=== PATIENT | female | born 1950 | race Caucasian/White ===

== ENCOUNTER → 2017-04-17 | Outpatient (CLI) | payer BC ==
[~2017-04-17] MED LIST: ARMO250T5 PO; ATOR10TA82 PO; ATV5 PO; BECL1AER5; CALC-354 PO; FSM70 PO; GLIM1TAB PO; IPRASOL4 INH; LEVO112T2 PO; LIOT5TAB9 PO; LOSA100T65 PO; MAGN400T6 PO; MISCCAP80 PO; MULT-506 PO; POTA10CA28 PO
--- NOTE | 2017-04-18 07:55 | MAMMOGRAPHY REPORT ---
BILATERAL DIGITAL SCREENING MAMMOGRAM WITH CAD: 04/17/2017 CLINICAL HISTORY: Routine screening. Patient has no complaints. TECHNIQUE: Bilateral CC, MLO and repeat right MLO views were obtained. Current study was also evalu ated with a Computer Aided Detection (CAD) system. COMPARISON: Comparison is made to exams dated: 04/15/2016 mammogram, 03/12/2015 mammogram, 03/10/2014 mammogram, 03/07/2013 mammogram, 03/06/2012 mammogram - [facility], and 10/31/2008. BREAST COMPOSITION: There are scattered areas of fibroglandular density in both breasts. FINDINGS: There are scattered and grouped microcalcifications bilaterally, stable compared to prior mammograms. No suspicious mass, architectural distortion or cluster of suspicious microcalcificatio ns is seen. IMPRESSION: ACR BI-RADS CATEGORY 1: NEGATIVE There is no mammographic evidence of malignancy. A 1 year screening mammogram is recommended. The p atient will receive written notification of the results. Approximately 10% of breast cancers are not detected with mammography. A negative mammographic repor t should not delay biopsy if a clinically suggestive mass is present. Libia Jacobo M.D. ay/:04/17/2017 16:56:17 Agricultural Sales Representative: Bar CARABALLO(R)(M), [facility] letter sent: Normal 1/2 BI-RADS Code: ACR BI-RADS Category 1: Negative
== END | disposition home or self-care (01) ==
LOC: C.MAMM 12:15
PROVIDERS: ATTEND Physician Assistant
DX: Z12.31 Encounter for screening mammogram for malignant neoplasm of breast (principal)

== ENCOUNTER → 2017-08-19 | Outpatient (CLI) | payer BC ==
[~2017-08-19] MED LIST changes: -ATOR10TA82 PO; +ATOR10TA88 PO
[2017-08-19 12:46] LABS: HEMATOCRIT 42.3 % (37-47); MEAN CORPUSCULAR HEMOGLOBIN 29.8 pg (25-34); MEAN CORPUSCULAR HGB CONC 32.4 g/dl (32-36); MEAN PLATELET VOLUME 11.7 fL (7.4-10.4); PLATELET COUNT 242 K/uL (130-400); WHITE BLOOD COUNT 7.39 K/uL (4.8-10.8)
[2017-08-19 13:05] LABS: ESTIMATED AVERAGE GLUCOSE 126 mg/dl; HA1C FLAG Normal (Normal)
[2017-08-19 13:12] LABS: ALT/SGPT 25 U/L (12-78); BLOOD UREA NITROGEN 16 mg/dl (7-18); BUN/CREATININE RATIO 14.6 (10-20); CARBON DIOXIDE 29 mmol/L (21-32); CHLORIDE 104 mmol/L (98-107); CHOLESTEROL 164 mg/dl (0-200); GLUCOSE 95 mg/dl (70-99); POTASSIUM 3.8 mmol/L (3.5-5.1); SODIUM 141 mmol/L (136-145)
[2017-08-19 13:22] LABS: ALB/GLOB RATIO 1.2 (0.9-2); ALKALINE PHOSPHATASE 52 U/L (45-117); AST/SGOT 15 U/L (15-37); CHOLESTEROL/HDL RATIO 2.4; HDL CHOLESTEROL 67 mg/dl; LDL CHOLESTEROL CALCULATED 76 mg/dl; THYROID STIMULATING HORMONE 0.533 uIu/ml (0.300-4.500); TRIGLYCERIDES 105 mg/dl (0-150); VERY LOW DENSITY LIPOPROT CALC 21 mg/dl
--- NOTE | 2017-08-31 12:43 | CODING QUERY MEDICAL NECESSITY ---
SUPPORTING DIAGNOSIS NEEDED Aguilar MARIA, A supporting diagnosis is required for the test/procedure performed on this patient in order for us to be reimbursed by the patient's insurance. Please provide a supporting diagnosis for the following test/procedure listed below next to the test name along with your signature. *If there is no additional diagnosis for this patient that would support the following test/procedure please document that below next to the test/procedure. Test(s)/Procedure(s) that require a supporting diagnosis: * ([id number]) VITAMIN D ASSAY DIAGNOSIS: DATE OF SERVICE: 08/19/17 Provider Signature: Date: Thank you Dung [facility] Information Management Once completed, please kindly fax back to [phone] For questions please call [phone]
== END | disposition home or self-care (01) ==
LOC: C.LAB 11:02
PROVIDERS: ATTEND Nurse Practitioner Family
DX: E03.2 Hypothyroidism due to medicaments and other exogenous substances (principal); I10 Essential (primary) hypertension; E11.65 Type 2 diabetes mellitus with hyperglycemia; M81.0 Age-related osteoporosis without current pathological fracture

== ENCOUNTER 2017-11-19 20:23 | Emergency (ER) | payer BC ==
[~2017-11-19] VITALS: Ht 172.7 cm; Wt 112.7 kg
[~2017-11-19 20:23] MED LIST changes: +ATOR10TA82 PO; -ATOR10TA88 PO
[2017-11-19 20:25] VITALS: TEMP 36.8; Ht 172.7 cm; Wt 112.7 kg
[2017-11-19] MEDS ORDERED: CHOL20007 PO (21:03)
[2017-11-19] MEDS ORDERED: LORA-741 PO (21:03)
[2017-11-19] MEDS ORDERED: ARMO150T4 PO (21:03)
[2017-11-19] MEDS ORDERED: LEVO75TA PO (21:03)
[2017-11-19] MEDS ORDERED: ALEN70TA4 PO (21:03)
[2017-11-19] MEDS ORDERED: ASPI81TA28 PO (21:03)
[2017-11-19] MEDS ORDERED: BECL1AER5 NAE (21:03)
[2017-11-19] MEDS ORDERED: MELA1TAB9 PO (21:03)
[2017-11-19 21:11] LABS: URINE BILIRUBIN NEG (NEG); URINE EPITHELIAL CELL AUTO 0-5 /lpf (0-5); URINE NITRITE NEG (NEG); URINE PH 8.5 (4.5-7.5); URINE SPECIFIC GRAVITY 1.015 (1.000-1.030); UROBILINOGEN NEG (NEG); ZZUR CULT IF INDIC CLEAN CATCH YES
[2017-11-19 21:19] LABS: SULFASALICYLIC ACID POS (NEG)
[2017-11-19 21:20] LABS: MANUAL MICROSCOPIC REQUIRED? NO; REVIEW REQ? YES; URINE APPEARANCE SLIGHTLY CLOUDY (CLEAR); URINE COLOR PINK
[2017-11-19] MEDS ORDERED: CEPHALEXIN MONOHYDRATE 250 MG CAP PO STA (21:46)
[2017-11-19] MEDS ORDERED: CEPHALEXIN 500MG HOME PACK 1 EA BTL PO STA (21:46)
[2017-11-19] MEDS ORDERED: CEPH500C PO (21:50)
--- NOTE | 2017-11-19 21:50 | EMERGENCY ROOM VISIT NOTE ---
History First contact with patient: 20:31 Chief Complaint: URINARY SYMPTOMS Stated Complaint: BLOOD IN URINE,SLIGHT BURNING Nursing Triage Summary: Patient c/o of noticing blood in the urine twice today. Patient states "This is the sign to get antibiotics for UTI. History of Present Illness The patient is a 67 year old female who presents to the Emergency Room via private vehicle with complaints of "blood in urine, slight burning". The patient states she has a history of UTIs, and states that a few hours ago she noticed that there was redness to her urine which she believes the blood as well as dysuria that is progressing. She denies any fevers, chills, nausea, vomiting or back pain. Review of Systems A complete 6-point Review of Systems was discussed with the patient, with pertinent positives and negatives listed in the History of Present Illness. All remaining Review of Systems questions can be considered negative unless otherwise specified. Past Medical/Surgical History UTI Family History Noncontributory Social History Smoking Status: Never Smoker Patient lives locally Current/Historical Medications Scheduled Alendronate Sodium (Fosamax), 70 MG PO WK Armodafinil (Nuvigil), 1 TAB PO DAILY Aspirin (Aspirin Ec), 81 MG PO DAILY Atorvastatin (Lipitor), 10 MG PO HS Beclomethasone Dipropionate (N (Qnasl), 1 SPRY ODALYS BID Calcium Carbonate-Cholecalcife (Caltrate 600+D), 1 TAB PO BID Cephalexin Monohydrate (Keflex), 500 MG PO QID Cholecalciferol (Vitamin D3), 2 TAB PO DAILY Glimepiride (Amaryl), 1 MG PO DAILY Levothyroxine Sodium (Synthroid), 75 MCG PO DAILY Liothyronine Sodium (Liothyronine Sodium), 2.5 MCG PO BID Losartan Potassium (Cozaar), 100 MG PO DAILY Magnesium Oxide (Mag-Ox), 400 MG PO DAILY Multivitamin (Multivitamin), 1 TAB PO DAILY Potassium Chloride (Micro-K Ext Rel), 10 MEQ PO DAILY Probiotic Product (Probiotic), 1 CAP PO DAILY Scheduled PRN Lorazepam (Ativan), 0.5 MG PO BID PRN for Anxiety Melatonin-Pyridoxine (Melatonin), 1 TAB PO HS PRN for Sleep Physical Exam Vital Signs Date Time Temp Pulse Resp B/P (MAP) Pulse Ox O2 Delivery O2 Flow Rate FiO2 11/19/17 21:58 85 20 147/85 95 11/19/17 20:25 36.8 95 20 156/92 95 Room Air Physical Exam VITAL SIGNS - Vital signs and nursing notes were reviewed. Stable. GENERAL -67-year-old female appearing her stated age who is in no acute distress. Communicates well with provider and answers questions appropriately. SKIN - Without rashes. EYES - Sclera anicteric. Medical Decision & Procedures Laboratory Results Test 11/19/17 21:00 Urine Color PINK Urine Appearance SLIGHTLY CLOUDY (CLEAR) Urine pH 8.5 (4.5-7.5) Urine Specific [place] 1.015 (1.000-1.030) Urine Protein TRACE (NEG) Urine Glucose (UA) NEG (NEG) Urine Ketones NEG (NEG) Urine Occult Blood 3+ (NEG) Urine Nitrite NEG (NEG) Urine Bilirubin NEG (NEG) Urine Urobilinogen NEG (NEG) Urine Leukocyte Esterase MODERATE (NEG) Urine WBC (Auto) >30 /hpf (0-5) Urine RBC (Auto) >30 /hpf (0-4) Urine Hyaline Casts (Auto) 1-5 /lpf (0-5) Urine Epithelial Cells (Auto) 0-5 /lpf (0-5) Urine Bacteria (Auto) 2+ (NEG) Medications Administered Medications (Trade) Dose Ordered Sig/Ole Route Start Time Stop Time Status Last Admin Dose Admin Cephalexin Monohydrate (Keflex 500MG Home Pack) 2 homepack NOW STAT PO 11/19/17 21:46 11/19/17 21:48 DC 11/19/17 21:54 2 HOMEPACK Cephalexin Monohydrate (Keflex Cap) 500 mg NOW STAT PO 11/19/17 21:46 11/19/17 21:48 DC 11/19/17 21:54 500 MG Medical Decision Patient was seen and evaluated as above. She presents to us today with mild dysuria and subjective hematuria. Urine was obtained and reveals white blood cells and bacteria. No nitrites. I'm favoring a UTI. She denied any back pain. The hematuria and dysuria just started a few hours prior to arrival. She has a history of UTIs. She'll be given Keflex. Culture pending. She was educated upon worrisome symptoms which to return, had questions and provided discharge, and was discharged home in good condition. Case was discussed with the attending physician who also saw the patient personally. In evaluation treatment this patient following differential diagnoses were entertained: UTI, pyelonephritis, renal calculi, among others. Medication was reviewed as well as her vitals. Blood pressure elevated secondary to situation. Impression Primary Impression: Urinary tract infection Departure Information Dispostion Home / Self-Care Condition GOOD Prescriptions Cephalexin Monohydrate (Keflex) 500 Mg Cap 500 MG PO QID for 5 Days, #20 CAP Prov: Richard Baker PA-C 11/19/17 Referrals Melanie Sheikh (PCP) Patient Instructions My [facility] Additional Instructions You have been treated in the Emergency Department for a Urinary Tract Infection (UTI). You have been prescribed kelex to be taken every 6 hours. This is an antibiotic. All antibiotics have the potential to cause diarrhea. Stop this medication and contact a medical provider if you were to develop any significant adverse side effects including: wheezing, shortness of breath, passing out, vomiting, or a diffuse rash. Always take antibiotics as directed and COMPLETE the ENTIRE course regardless of the improvement of your symptoms. Return to the emergency department if your symptoms worsen despite treatment course outlined above. Drink plenty of water and stay well hydrated. As with any trip to the Emergency Department, you should follow-up with your Primary Care Provider from today's visit. Return to the emergency department if your symptoms persist despite treatment plan outlined above or if the following symptoms occur: increased fevers, chills , low back pain, nausea/vomiting, or blood in your urine.
[2017-11-19 21:58] VITALS: BP 147/85; PULSE 85; O2SAT 95
--- NOTE | 2017-11-21 12:34 | Pharmacy Progress Note ---
ED Pharmacist Culture FollowUp Date of Service: Nov 21, 2017. Called patient regarding URINE culture. Prescription for Macrobid 100mg PO BID x 7 days called to Nat[facility] ([phone]) at the patient's request. Case discussed with Dr Christi Hallman, who is the prescribing provider. Patient was advised to stop taking the Cephalexin as the e coli growing in the urine cx was resistant.
== END 2017-11-19 21:59 | disposition home or self-care (01) ==
LOC: C.EDB 20:24 → C.EDD 21:59
DX: N39.0 Urinary tract infection, site not specified (principal); R30.0 Dysuria

== ENCOUNTER → 2018-06-21 | Outpatient (CLI) | payer BC ==
[~2018-06-21] MED LIST changes: +ALEN70TA4 PO; +ARMO150T4 PO; -ARMO250T5 PO; +ASPI81TA28 PO; -ATV5 PO; -BECL1AER5; +BECL1AER5 NAE; +CHOL20007 PO; -FSM70 PO; -IPRASOL4 INH; -LEVO112T2 PO; +LEVO75TA PO; +LORA-741 PO; +MELA1TAB9 PO
[2018-06-21 16:03] LABS: ALBUMIN 3.9 gm/dl (3.4-5.0); ALKALINE PHOSPHATASE 55 U/L (45-117); ALT/SGPT 26 U/L (12-78); AST/SGOT 18 U/L (15-37); BLOOD UREA NITROGEN 14 mg/dl (7-18); CALCIUM 9.2 mg/dl (8.5-10.1); CARBON DIOXIDE 28 mmol/L (21-32); CREATININE 1.08 mg/dl (0.60-1.20); GLUCOSE 83 mg/dl (70-99); POTASSIUM 3.8 mmol/L (3.5-5.1); SODIUM 140 mmol/L (136-145); TOTAL PROTEIN 7.5 gm/dl (6.4-8.2)
== END | disposition home or self-care (01) ==
LOC: C.LAB 13:00
PROVIDERS: ATTEND Urology
DX: N39.0 Urinary tract infection, site not specified (principal); R31.29 Other microscopic hematuria; R30.0 Dysuria

== ENCOUNTER → 2018-07-03 | Outpatient (CLI) | payer BC ==
[~2018-07-03] MED LIST changes: +OPTIRAY 320 IV PRN
--- NOTE | 2018-07-03 14:20 | DIAGNOSTIC IMAGING REPORT ---
CT OF THE ABDOMEN AND PELVIS WITH AND WITHOUT CONTRAST HEMATURIA PROTOCOL CLINICAL HISTORY: Dysuria. COMPARISON STUDY: CT of the abdomen and pelvis June 13, 2007 and MRCP June 14, 2007. TECHNIQUE: Unenhanced and split bolus phase imaging of the abdomen and pelvis was performed. Intravenous injection of 119 cc Optiray 320 IV was uneventful. A dose lowering technique was utilized adhering to the principles of ALARA. CT DOSE: 2023.00 mGycm FINDINGS: Lung bases are clear. The liver, spleen, adrenal glands and pancreas are unremarkable. There are gallstones within the gallbladder. There is no pericholecystic infiltration. No biliary or pancreatic ductal dilatation is noted. There is no peripancreatic infiltration. A small hiatal hernia is noted. No abdominal or pelvic lymphadenopathy is noted. There is colonic diverticulosis without evidence for acute diverticulitis. The appendix is not visualized. No renal, ureteral or bladder calculi are present. There is no hydronephrosis or hydroureter. No upper tract urothelial lesions are identified. No bladder lesion is identified by CT. No suspicious osseous lesions are noted. IMPRESSION: 1. No CT findings to explain hematuria. No urinary calculi, hydronephrosis or upper tract urothelial lesions. 2. Cholelithiasis. 3. Colonic diverticulosis without evidence for acute diverticulitis. Electronically signed by: Kieran Joe M.D. 07/03/2018 2:19 PM Dictated Date/Time: 07/03/2018 2:04 PM
== END | disposition home or self-care (01) ==
LOC: C.CTS 13:30
PROVIDERS: ATTEND Urology
DX: N39.0 Urinary tract infection, site not specified (principal); R31.29 Other microscopic hematuria; R30.0 Dysuria; K80.20 Calculus of gallbladder without cholecystitis without obstruction; K57.90 Diverticulosis of intestine, part unspecified, without perforation or abscess without bleeding